=== PATIENT | male | born 1995 | race Caucasian/White ===

== ENCOUNTER 2019-11-13 09:55 | Outpatient (CLI) | payer OTHER ==
--- NOTE | 2019-11-13 13:24 | ULT ---
TESTICULAR ULTRASOUND: Date: 11/13/2019 HISTORY: Family history of testicular cancer. Lump in scrotum. FINDINGS: Real-time imaging of the right and left testis performed. Both testes have a heterogeneous echotextur e, but no focal discrete mass. The right testicle measures 4.6 cm and the left measures 4.9 cm. Right and left epididymal regions appear unremarkable. The area of palpable concern is near the base of the penis. It does not appear to be related to eithe r the epididymis or testes. I am not certain of the significance of this. Technologist states that it elongates in appearance. DOPPLER EVALUATION WITH SPECTRAL ANALYSIS: Normal flow is shown to the testes and epididymal regions. IMPRESSION: 1. Slightly heterogeneous echotexture to both testes, but no focal discrete mass. 2. The area of palpable concern corresponds to a vague area of soft tissue density which is extrates ticular of uncertain significance. POS: JANICE
== END 2019-11-13 09:56 | disposition home or self-care (01) ==
LOC: SCSULT 09:55
PROVIDERS: ATTEND Family Medicine
DX: N50.89 Other specified disorders of the male genital organs (principal)
CPT/HCPCS: 76870; 93976